=== PATIENT | female | born 1960 | race Caucasian/White ===

== ENCOUNTER 2020-06-10 08:00 | Outpatient (RCR) | payer BC, SELFPAY ==
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
--- NOTE | 2020-03-31 08:49 | HP.PTREVAL_ITS ---
DIDIER KESSLER, It has been my pleasure to treat CHELSEA BARTLETT over the last 19 visits for L wrist and elbow pain. Please see the progress note below for an update on the physical therapy plan of care! Subjective: Pt reports she feels much better, but still lacks ROM and strength Objective/Function: L elbow and wrist pain 2/10 currently, increases to 4/10 at worst. L elbow ROM: 0-23-120. L ribbon lapper tender strength: 30 #/F. L UE strength: flex and ext= 4+/5 in available ROM. L wrist ROM: flex= 60, ext= 65 degrees. Pt is showing great improvements with ROM and strength, but still shows decreased function secondary to strength and ROM Plan Plan: Cont 1 time per week for 4 weeks with emphasis on ROM and strengthening Goals Goal 1:: Decrease L UE pain x 50% to aid with sleep Goal Time Frame: 4-6 Weeks Goal Progress: Goal Met Goal 2:: Increase L elbow strength x 1 grade to aid with IADL's Goal Time Frame: 4-6 Weeks Goal 3:: Increase L ribbon lapper tender strength x 10 #/F to aid with work requirements Goal Time Frame: 4-6 Weeks Goal 4:: Increase L elbow ROM x 30 degrees to aid with IADL's Goal Time Frame: 4-6 Weeks Goal 5:: I with HEP Goal Time Frame: 4-6 Weeks Anticipated Interventions Patient/Client Instruction: Educate patient on: Condition, Plan of Care For the Purpose of:: To improve self management Therapeutic Exercise to Include: Strength training, Endurance training, Flexibilty training, Passive ROM, Active ROM For the Purpose of:: To decrease pain, To increase ROM, To improve muscle performance and motor function, To improve ability to perform ADL's Cryotherapy (ice pack, ice massage): Yes Thermo therapy (hot pack): Yes For the Purpose of:: To decrease pain Please do not hesitate to contact me at [phone] by phone or if you have questions or concerns regarding this new plan of care! Sincerely, Bhupinder Urena, PT, ATC
--- NOTE | 2020-06-10 08:36 | HP.PTDCSUM ---
It has been my pleasure to treat CHELSEA BARTLETT referred by DIDIER KESSLER, with the diagnosis of L wrist and elbow pain for a total of 24 visit(s). Discharge Date: Please see the following information for a summary of their discharge status. Subjective: I feel great right now. I did fall the other day L elbow Pain Intensity (Out of 10): 0 L wrist Pain Intensity (Out of 10): 0 % Improvement: 95 Objective/Function: L UE pain 2/10. L elbow ROM: 0-15-135. L inspector precision strength 40 #F. L elbow strength is 5/5 throughout. All Rx goals achieved Goal 1:: Decrease L UE pain x 50% to aid with sleep Goal Progress: Goal Met Goal 2:: Increase L elbow strength x 1 grade to aid with IADL's Goal Progress: Goal Met Goal 3:: Increase L inspector precision strength x 10 #/F to aid with work requirements Goal Progress: Goal Met Goal 4:: Increase L elbow ROM x 30 degrees to aid with IADL's Goal Progress: Goal Met Goal 5:: I with HEP Goal Progress: Goal Met Plan: Discharge If there are questions or concerns regarding this patient's physical therapy, please feel free to call me at [phone]. Thank you for the referral of this patient. Sincerely, Bhupinder Urena, PT, ATC
== END 2020-06-10 10:25 | disposition home or self-care (01) ==
LOC: PT 08:00
PROVIDERS: PCP Internal Medicine
DX: S52.502D Unspecified fracture of the lower end of left radius, subsequent encounter for closed fracture with routine healing (principal); S42.492D Other displaced fracture of lower end of left humerus, subsequent encounter for fracture with routine healing
CPT/HCPCS: 97110; 97140; 97161; 97164

== ENCOUNTER 2020-06-13 05:54 | Day surgery (SDC) | payer BC, SELFPAY ==
--- NOTE | 2020-06-02 13:30 | EKG12_ITS ---
Test Reason : PREOP Blood Pressure : / mmHG Vent. Rate : 071 BPM Atrial Rate : 071 BPM P-R Int : 138 ms QRS Dur : 092 ms QT Int : 400 ms P-R-T Axes : 077 054 071 degrees QTc Int : 434 ms Normal sinus rhythm with sinus arrhythmia Normal ECG Confirmed by BERLIN NICKERSON, RALEIGH ([id number]), copy editor LISA NAVA ([id number]) on 06/03/2020 7:49:37 AM Referred By: SUHAS Confirmed By:RALEIGH SLADE MD
[2020-06-02 15:09] LABS: Hematocrit 41.5 % (37-47); Hemoglobin 13.4 g/dL (12.0-15.0); Mean Corp Hgb Conc 32.3 g/dL (32-36); Mean Corpuscular Hgb 29.5 pg (27.0-32.0); Mean Corpuscular Volume 91.4 fL (81-99); Mean Platelet Vol. 9.2 fl (6.2-12.0); Platelet Count 399 K/mm3 (150-450); RBC Distribution Width CV 12.9 % (11.6-14.6); RBC Distribution Width SD 42.7 fl (35.1-43.9); Red Blood Count 4.54 M/mm3 (4.2-5.4); White Blood Count 7.8 K/mm3 (4.4-11.0)
[2020-06-02 15:45] LABS: Anion Gap 5 (5-15); BUN 11 mg/dL (7-18); BUN/Creat Ratio 12.4 RATIO (10-20); Chloride 106 mmol/L (98-107); Creatinine, Serum 0.89 mg/dL (0.55-1.02); EST Glomerular Filtration Rate 69 mL/min (>60); Est Glom Filt Rate - Afr Amer 84 mL/min (>60); Glucose 85 mg/dL (74-106); Potassium 3.9 mmol/L (3.5-5.1); Sodium Level 141 mmol/L (136-145)
[2020-06-13] VITALS (9 sets, daily range): BP systolic 82–115; BP diastolic 51–71; PULSE 52–79; RESP 16; TEMP 36.2–37.1; O2SAT 96–100; BMI 28.1
[2020-06-13] MEDS: Lactated Ringers 1,000 ML 100 ML IV (06:35)
[2020-06-13] MEDS: Epinephrine (1 mg/ml) 1 MG/ML VIAL (08:16)
[2020-06-13] MEDS: Bupiv/Epi 0.5% Mpf 30 ML Vial (08:16)
--- NOTE | 2020-06-13 08:18 | PCM.OPRPT ---
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
== END 2020-06-13 13:27 | disposition home or self-care (01) ==
LOC: SDC 05:55 → AC 05:55
PROVIDERS: PCP Internal Medicine; Referring Provider Orthopaedic Surgery; Visit Provider Orthopaedic Surgery
PROC: (CPT 29870; principal; 2020-06-13 07:10)
DX: S83.242A Other tear of medial meniscus, current injury, left knee, initial encounter (principal); S83.282A Other tear of lateral meniscus, current injury, left knee, initial encounter; M22.42 Chondromalacia patellae, left knee; V19.9XXA Pedal cyclist (driver) (passenger) injured in unspecified traffic accident, initial encounter; Y93.9 Activity, unspecified; Y92.9 Unspecified place or not applicable; G25.81 Restless legs syndrome; Z78.0 Asymptomatic menopausal state; Z87.442 Personal history of urinary calculi
CPT/HCPCS: 29880; 36415; 80048; 85027; 93005; J7120; J2405

== ENCOUNTER 2020-07-18 09:00 | Outpatient (RCR) | payer BC, SELFPAY ==
[2020-06-13 06:25] VITALS: BMI 28.1
--- NOTE | 2020-07-18 09:26 | HP.PTREVAL ---
Richard Valdovinos PA-C, It has been my pleasure to treat CHELSEA BARTLETT over the last 3 visits for L knee pain. Please see the progress note below for an update on the physical therapy plan of care! Subjective: I gert random pain under my knee cap. Objective/Function: L knee pain 0/10, increases to 4/10 at worst. Pt still complains of stiffness at times. L knee ROM: 0-8-125. L knee MMT: 5/5 throughout. L knee girth at joint line: 37 cm Plan Plan: Continue PT or discharge, pending DrAustin visit on Saturday07/20/20 Goals Goal 1:: Decrease L knee pain x 50% to aid with sleep Goal Time Frame: 4-6 Weeks Goal Progress: Goal Met Goal 2:: Increase L knee strength x 1 grade to aid with IADL's Goal Time Frame: 4-6 Weeks Goal Progress: Goal Met Goal 3:: Increase L knee ROM x 30 degrees to aid with restoring a more normalized gait pattern Goal Time Frame: 4-6 Weeks Goal Progress: Progressing Goal 4:: I with HEP Goal Time Frame: 4-6 Weeks Goal Progress: Goal Met Anticipated Interventions Patient/Client Instruction: Educate patient on: Condition, Plan of Care For the Purpose of:: To improve self management Therapeutic Exercise to Include: Strength training, Endurance training, Balance training, Flexibilty training, Gait and locomotor training, Active ROM, Dynamic Lumbar Stabilization For the Purpose of:: To decrease pain, To increase ROM, To improve muscle performance and motor function Cryotherapy (ice pack, ice massage): Yes For the Purpose of:: To decrease pain Please do not hesitate to contact me at [phone] by phone or if you have questions or concerns regarding this new plan of care! Sincerely, Bhupinder Urena, PT, ATC
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
--- NOTE | 2020-11-04 07:43 | HP.PT.NRP ---
CHELSEA BARTLETT was seen in my office for initial evaluation on 06/20/20. The following Plan of Care was established for this patient: Initial Frequency: 2-3x /Week Initial Duration: 4-6 Weeks Patient/Client Instruction: Educate patient on: Condition, Plan of Care For the Purpose of:: To improve self management Therapeutic Exercise to Include: Strength training, Endurance training, Balance training, Flexibilty training, Gait and locomotor training, Active ROM, Dynamic Lumbar Stabilization For the Purpose of:: To decrease pain, To increase ROM, To improve muscle performance and motor function Cryotherapy (ice pack, ice massage): Yes For the Purpose of:: To decrease pain This patient was last seen in our office . Pertinent comments regarding their Physical therapy will appear below: Pt was treated for 3 visits for L knee pain through the date of 07/18/2020. Pt has not returned through todays date, and is discontinued at this time. At this point I will be discontinuing this patient from physical therapy. I would be happy to see this patient again in the future if found appropriate by the physician. Thank you! Bhupinder Urena, PT, ATC Balance/Gait/Functional tests - Balance/Special Test Scores Lower Extremity Functional Score: 56
== END 2020-07-18 19:00 | disposition home or self-care (01) ==
LOC: PT 09:00
PROVIDERS: PCP Internal Medicine; Referring Provider Physician Assistant; Visit Provider Physician Assistant
DX: S83.242D Other tear of medial meniscus, current injury, left knee, subsequent encounter (principal); X58.XXXD Exposure to other specified factors, subsequent encounter
CPT/HCPCS: 97110; 97161; 97164